=== PATIENT | male | born 1995 | race Two or more races ===

== ENCOUNTER 2022-04-25 23:31 | Emergency (ER) | payer OTHER ==
[~2022-04-25] VITALS: Ht 170.2 cm; Wt 73.0 kg
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
--- NOTE | 2022-04-25 23:59 | NUR ---
DR. GUTIERREZ GIBBS AT PT'S BEDSIDE FOR EVAL
--- NOTE | 2022-04-26 00:15 | NUR ---
WELFARE SERVICE AIDE AT PT'S BEDSIDE
[2022-04-26] MEDS ORDERED: CYCLOBENZAPRINE 10 MG TABLET ONE (00:27)
[2022-04-26] MEDS ORDERED: IBUPROFEN 600 MG TABLET ONE (00:27)
[2022-04-26] MEDS ORDERED: CYCLOBENZAPRINE 10 MG TABLET PO ONE (00:30)
[2022-04-26] MEDS ORDERED: IBUPROFEN 600 MG TABLET PO ONE (00:30)
[2022-04-26] MEDS ORDERED: CYCL5TAB PO (00:31)
--- NOTE | 2022-04-26 00:35 | NUR ---
Patient discharged to home in stable condition. Written and verbal after care instructions given. Patient verbalizes understanding of instruction.
[2022-04-26 00:36] VITALS: BP 132/56
== END 2022-04-26 00:40 | disposition home or self-care (01) ==
LOC: ER 23:47
DX: M54.2 Cervicalgia (principal); V89.2XXA Person injured in unspecified motor-vehicle accident, traffic, initial encounter; Y93.89 Activity, other specified; Y92.89 Other specified places as the place of occurrence of the external cause; Y99.8 Other external cause status